=== PATIENT | male | born 1960 | race Caucasian/White ===

== ENCOUNTER 2021-01-20 15:01 | Emergency (ER) | payer MEDICARE ==
[~2021-01-20] VITALS: Ht 175.3 cm; Wt 81.6 kg
[2021-01-20 16:13] LABS: HEMOGLOBIN 15.6 gm/dl (14.0-17.5); RED BLOOD COUNT 5.26 M/UL (4.20-5.50); WHITE BLOOD COUNT 8.2 K/UL (4.5-11.0)
[2021-01-20 16:37] LABS: BUN/CREATININE RATIO 23 (0-10)
== END 2021-01-20 16:48 | disposition home or self-care (01) ==
LOC: ER1 15:01
PROVIDERS: Emergency Medicine
DX: Z23 Encounter for immunization (principal); U07.1 COVID-19
CPT/HCPCS: 71045; 80053; 85025; 99285; M0243; Q0243